=== PATIENT | female | born 1965 | race Caucasian/White ===

== ENCOUNTER 2022-11-23 06:00 | Day surgery (SDC) | payer OTHER ==
[~2022-11-23] VITALS: Ht 160 cm; Wt 70.3 kg
[~2022-11-23 06:00] MED LIST: CIPRO750 MG PO; CLONAZEPAM1 MG PO; DEMEROL IM; DOCUSATE SODIU100 MG PO; METHYLPRED4 MG/DOSE- PO; NEURONTIN PO; ZIPSOR25 MG PO; ZOCOR20 MG PO
[2022-11-23] MEDS ORDERED: IBU600 MG PO (08:26)
== END 2022-11-23 11:05 | disposition home or self-care (01) ==
LOC: CIR.AMB 06:00
PROVIDERS: ATTEND Obstetrics & Gynecology Gynecology
DX: N95.0 Postmenopausal bleeding (principal); N84.0 Polyp of corpus uteri; I10 Essential (primary) hypertension; Z20.822 Contact with and (suspected) exposure to COVID-19; Z91.041 Radiographic dye allergy status